=== PATIENT | female | born 1950 | race Caucasian/White ===

== ENCOUNTER 2019-01-25 23:31 | Emergency (ER) | payer OTHER ==
--- NOTE | 2019-01-25 23:44 | PDOC ---
History of Present Illness - General Chief Complaint: Choking Sensation Stated Complaint: PIECE OF FOOD STUCK Time Seen by Provider: 01/25/19 23:43 History Source: Patient Exam Limitations: No Limitations - History of Present Illness Initial Comments: 68 year old female with PMH osteoporosis (on Alendronate) presented to ED for choking sensation after ingestion of Guille apple. Pt reported she believes the apple piece is stuck in her esophagus. Pt reported she has had one prior episode of choking sensation with food, occurred with bread. Pt denied chest pain, vomiting, fever, syncope, lightheadedness. Pt report she drove herself here, but feels mildly short of breath. Past History - Past Medical History Allergies/Adverse Reactions: Allergies Allergy/AdvReac Type Severity Reaction Status Date / Time Penicillins Allergy Verified 01/25/19 23:45 Review of Systems - Review of Systems Able to Perform ROS?: Yes Comments:: ROS General: denied fever, chills, generalized weakness. HEENT: admitted to food bolus. denied sore throat, rhinorrhea, ear pain. Cardiovascular: denied chest pain, palpitations, syncope, diaphoresis. Respiratory: admitted to shortness of breath. denied cough, sputum production, hemoptysis. Gastrointestinal: denied abdominal pain, nausea, vomiting, diarrhea, constipation, blood in stool. Genitourinary: denied dysuria, increased urinary frequency, hematuria, urinary incontinence, flank pain. Back: denied back pain. Musculoskeletal: denied joint pain, muscle pain, joint swelling. Neurological: denied headache, dizziness, numbness, tingling, weakness. Integumentary: denied rash, laceration, abrasion. Hematologic/Lymphatic: denied bruising or bleeding. PE Constitutional: Well-nourished, Well-developed, appearing stated age. HEENT: head is normocephalic, atraumatic. EOMI. PERRLA. Neck: supple. Full ROM. Cardiovascular: regular heart rhythm. no murmurs. no pericardial friction rub. Respiratory: clear to auscultation bilaterally. no crackles, rhonchi or wheezing. no stridor. tolerating oral secretions. Gastrointestinal: soft, nontender. normal bowel sounds. no rebound, guarding, masses. Extremities: peripheral pulses intact. no lower extremity edema. Neurological: CN 2-12 grossly intact. moves all four extremities. Psych: awake, alert, oriented x3. follows commands. answers questions appropriately. ED Treatment Course - LABORATORY CBC & Chemistry Diagram: 01/25/19 11:55 01/25/19 11:55 Medical Decision Making - Medical Decision Making 68 year old female with above PMH presented to ED for food bolus. Initial Vital Signs Temp Pulse Resp BP Pulse Ox 98.5 F 107 H 22 H 120/100 100 01/25/19 23:31 01/25/19 23:31 01/25/19 23:31 01/25/19 23:31 01/25/19 23:31 Afebrile. Tachycardic. Tachypnea. No hypotension. No hypoxia on room air. Labs ordered: CBC, CMP, lipase, coags Imaging ordered: none Medications ordered: glucagon 0.5 mg IV once, normal saline bolus 1000 cc once 01/26/19 00:18 CBC WBC 6.6 K/mm3 (4.0-10.0) 01/25/19 11:55 RBC 4.12 M/mm3 (3.60-5.2) 01/25/19 11:55 Hgb 13.3 GM/dL (10.7-15.3) 01/25/19 11:55 Hct 38.5 % (32.4-45.2) 01/25/19 11:55 MCV 93.4 fl (80-96) 01/25/19 11:55 MCH 32.3 pg (25.7-33.7) 01/25/19 11:55 MCHC 34.5 g/dl (32.0-36.0) 01/25/19 11:55 RDW 12.5 % (11.6-15.6) 01/25/19 11:55 Plt Count 247 K/MM3 (134-434) 01/25/19 11:55 MPV 7.6 fl (7.5-11.1) 01/25/19 11:55 Absolute Neuts (auto) 2.4 K/mm3 (1.5-8.0) 01/25/19 11:55 Neutrophils % 36.5 % (42.8-82.8) L 01/25/19 11:55 Lymphocytes % 51.2 % (8-40) H 01/25/19 11:55 Monocytes % 9.7 % (3.8-10.2) 01/25/19 11:55 Eosinophils % 1.9 % (0-4.5) 01/25/19 11:55 Basophils % 0.7 % (0-2.0) 01/25/19 11:55 Nucleated RBC % 0 % (0-0) 01/25/19 11:55 No leukocytosis. No anemia. 01/26/19 00:35 Pt reported she coughed a few times and then felt the food bolus pass. She is requesting discharge, she denied SOB/chest pain/palpitations. She had not received Glucagon yet and does not want any medication. Pt reported she does not want to wait for CMP to return prior to discharge. Pt discharged. F/U: GI 01/27/19 Follow up: CMP Sodium 142 mmol/L (136-145) 01/25/19 11:55 Potassium 3.3 mmol/L (3.5-5.1) L 01/25/19 11:55 Chloride 111 mmol/L (98-107) H 01/25/19 11:55 Carbon Dioxide 20 mmol/L (21-32) L 01/25/19 11:55 Anion Gap 12 MMOL/L (8-16) 01/25/19 11:55 BUN 12.9 mg/dL (7-18) 01/25/19 11:55 Creatinine 0.7 mg/dL (0.55-1.3) 01/25/19 11:55 Est GFR (CKD-EPI)AfAm 103.91 01/25/19 11:55 Est GFR (CKD-EPI)NonAf 89.65 01/25/19 11:55 Random Glucose 139 mg/dL (74-106) H 01/25/19 11:55 Calcium 8.8 mg/dL (8.5-10.1) 01/25/19 11:55 Magnesium 2.0 mg/dL (1.8-2.4) 01/25/19 11:55 Total Bilirubin 0.2 mg/dL (0.2-1) 01/25/19 11:55 AST 15 U/L (15-37) 01/25/19 11:55 ALT 17 U/L (13-61) 01/25/19 11:55 Alkaline Phosphatase 67 U/L (45-117) 01/25/19 11:55 Troponin I < 0.02 ng/ml (0.00-0.05) 01/25/19 11:55 Total Protein 7.2 g/dl (6.4-8.2) 01/25/19 11:55 Albumin 3.4 g/dl (3.4-5.0) 01/25/19 11:55 Lipase 153 U/L (73-393) 01/25/19 11:55 Discharge - Discharge Information Problems reviewed: Yes Clinical Impression/Diagnosis: Choking sensation Condition: Improved Disposition: HOME - Admission No - Follow up/Referral Referrals: Ofe Coffey MD [Primary Care Provider] - Diogenes Prince MD [Staff Physician] - Anurag Enrique MD [Staff Physician] - Shay Gray DO [Staff Physician] - - Patient Discharge Instructions Patient Printed Discharge Instructions: Steakhouse Syndrome Additional Instructions: Follow up with your primary care doctor within 3 days. Your care is not complete until you follow up. Return to the Emergency Department for increasing pain, chest pain, shortness of breath, inability to tolerate oral secretions, vomiting, lightheadedness, passing out or any other new, worsening or concerning symptoms. Follow up with a Bar Manager within 7 days. I have provided you with multiple referrals should you need them. - Post Discharge Activity
[2019-01-25 23:45] VITALS: TEMP 98.5; BMI 22.6
[2019-01-25] MEDS ORDERED: GlUCAGON HUMAN RECOMBINANT 1 MG/VIAL IVPUSH ONE (23:55)
[2019-01-26] LABS: BASO % 0.7 % (0-2.0); EOS % 1.9 % (0-4.5); HEMATOCRIT 38.5 % (32.4-45.2); HEMOGLOBIN 13.3 GM/dL (10.7-15.3); LYMPH % 51.2 % (8-40); MCH 32.3 pg (25.7-33.7); MCHC 34.5 g/dl (32.0-36.0); MEAN CELL VOLUME 93.4 fl (80-96); MEAN PLT VOLUME 7.6 fl (7.5-11.1); MONO % 9.7 % (3.8-10.2); NEUT % 36.5 % (42.8-82.8); PLATELET COUNT 247 K/MM3 (134-434); RBC 4.12 M/mm3 (3.60-5.2); RDW 12.5 % (11.6-15.6); WHITE BLOOD COUNT 6.6 K/mm3 (4.0-10.0)
[2019-01-26 00:06] LABS: INR 0.96 (0.83-1.09); PROTHROMBIN TIME (PATIENT) 11.3 SEC (9.7-13.0)
[2019-01-26 00:09] LABS: ACTIVATED PTT 30.4 SECONDS (25.2-36.5)
[2019-01-26] MEDS ORDERED: SODIUM CHLORIDE 1,000 ML IV STA (00:09)
--- NOTE | 2019-01-26 00:26 | PDOC ---
Attending Attestation - Resident Resident Name: Mirta Soliman - ED Attending Attestation I have performed the following: I have examined & evaluated the patient, The case was reviewed & discussed with the resident, I agree w/resident's findings & plan, Exceptions are as noted - HPI HPI: 01/26/19 02:13 68F here with globus sensation after eating apple. No other complaints - Physicial Exam PE: 01/26/19 02:13 Agree with exam as documented by resident - Medical Decision Making 01/26/19 02:15 After interview, patient cough and symptom spontaneously resolved DC home
[2019-01-26] MEDS ORDERED: GlUCAGON HUMAN RECOMBINANT 1 MG/VIAL ONE (00:32)
[2019-01-26 00:46] VITALS: BP 112/73; PULSE 92
[2019-01-26 03:15] LABS: ALBUMIN 3.4 g/dl (3.4-5.0); ALK PHOS 67 U/L (45-117); ANION GAP 12 MMOL/L (8-16); BILIRUBIN,TOTAL 0.2 mg/dL (0.2-1); BLOOD UREA NITROGEN 12.9 mg/dL (7-18); CALCIUM 8.8 mg/dL (8.5-10.1); CHLORIDE 111 mmol/L (98-107); CO2 20 mmol/L (21-32); CREATININE 0.7 mg/dL (0.55-1.3); GLUCOSE,RANDOM 139 mg/dL (74-106); LIPASE 153 U/L (73-393); POTASSIUM 3.3 mmol/L (3.5-5.1); SGOT/AST 15 U/L (15-37); SGPT/ALT 17 U/L (13-61); SODIUM 142 mmol/L (136-145); TOT PROT 7.2 g/dl (6.4-8.2)
== END 2019-01-26 00:49 | disposition home or self-care (01) ==
LOC: JER 23:31
DX: R09.89 Other specified symptoms and signs involving the circulatory and respiratory systems (principal); T17.228A Food in pharynx causing other injury, initial encounter; X58.XXXA Exposure to other specified factors, initial encounter; Y93.89 Activity, other specified; Y92.038 Other place in apartment as the place of occurrence of the external cause; Y99.8 Other external cause status; M81.0 Age-related osteoporosis without current pathological fracture; Z88.0 Allergy status to penicillin
CPT/HCPCS: 36415; 80053; 83690; 83735; 84484; 85025; 85610; 85730; 99283-25

== ENCOUNTER 2022-04-26 04:00 | Day surgery (SDC) | payer OTHER ==
[2022-04-21 09:52] VITALS: BMI 22.0
[2022-04-26] MEDS ORDERED: ePHEDrine SULFATE 50 MG/1 ML AMPULE ONE ×2 (07:13→09:45)
[2022-04-26] MEDS ORDERED: MIDAZOLAM HCL 2 MG/2 ML SINGLE DOSE VIAL ONE (07:13)
[2022-04-26] MEDS ORDERED: LIDOCAINE HCL/PF 2% SDV 5ML VIAL ONE (07:13)
[2022-04-26] MEDS ORDERED: SUCCINYLCHOLINE CHLORIDE 200 MG/10 ML SYRINGE ONE (07:13)
[2022-04-26] MEDS ORDERED: ROCURONIUM BROMIDE 50 MG/5 ML SYRINGE ONE (07:13)
[2022-04-26] MEDS ORDERED: PROPOFOL 20 ML ONE (07:13)
[2022-04-26] MEDS ORDERED: BUPIVACAINE HCL/PF 0.25% (2.5MG/ML) 10 ML VIAL ONE (07:42)
[2022-04-26] MEDS ORDERED: DEXAMETHASONE SOD PHOSPHATE 4 MG/1 ML VIAL ONE (09:39)
[2022-04-26] MEDS ORDERED: HEPARIN NA (PORCINE) 5,000 UNITS/ML 1ML VIAL ONE (09:46)
[2022-04-26] MEDS ORDERED: ceFAZolin SODIUM 1 GM VIAL ONE (09:47)
[2022-04-26] MEDS ORDERED: ceFAZolin SODIUM 1 GM VIAL IVPB ONE (09:48)
[2022-04-26] MEDS ORDERED: BUPIVACAINE HCL/PF 0.25% (2.5MG/ML) 10 ML VIAL IJ ONE ×2 (10:05)
[2022-04-26] MEDS ORDERED: ACETAMINOPHEN INJECTION 100 ML IVPB ONE (10:50)
[2022-04-26] MEDS ORDERED: ONDANSETRON 4 MG/2 ML VIAL ONE (11:15)
[2022-04-26] MEDS ORDERED: KETOROLAC TROMETHAMINE 30 MG/1 ML VIAL ONE (11:15)
[2022-04-26] MEDS ORDERED: NEOSTIGMINE METHYLSULFATE 0.5 MG/1 ML - 10 ML MDV ONE (12:06)
[2022-04-26] MEDS ORDERED: GLYCOPYRROLATE 0.2 MG/1 ML VIAL ONE (12:06)
[2022-04-26] MEDS ORDERED: PROMETHAZINE HCL 25 MG/1 ML VIAL IVPB PRN (12:29)
[2022-04-26] MEDS ORDERED: oxyCODONE HCL 5 MG TABLET PO PRN ×2 (12:29)
[2022-04-26] MEDS ORDERED: ONDANSETRON 4 MG/2 ML VIAL IVPUSH PRN (12:29)
[2022-04-26] MEDS ORDERED: LACTATED RINGERS SOLUTION 1,000 ML IV SCH (12:30)
[2022-04-26 14:32] VITALS: BP 107/59; RESP 16; TEMP 98
[2022-04-26] MEDS ORDERED: oxyCODONE HCL 5 MG TABLET ONE (15:08)
[2022-04-26] MEDS ORDERED: oxyCODONE HCL 5 MG TABLET PO ONE (15:10)
[2022-04-26 16:01] VITALS: PULSE 74
== END 2022-04-26 16:20 | disposition home or self-care (01) ==
LOC: JASU-SURG 04:00
PROVIDERS: ATTEND Surgery
PROC: 8E0W4CZ Robotic Assisted Procedure of Trunk Region, Percutaneous Endoscopic Approach (ICD-10-PCS; 2022-04-26)
PROC: 0YUA4JZ Supplement Bilateral Inguinal Region with Synthetic Substitute, Percutaneous Endoscopic Approach (ICD-10-PCS; principal; 2022-04-26 08:00)
DX: K40.20 Bilateral inguinal hernia, without obstruction or gangrene, not specified as recurrent (principal)
CPT/HCPCS: 49650; S2900; 88302-TC; 94760; C1781; J1644